=== PATIENT | male | born 1975 | race African-American/Black ===

== ENCOUNTER 2024-09-10 23:10 | Emergency (ER) | payer OTHER ==
[~2024-09-10] VITALS: Ht 182.9 cm; Wt 78.0 kg
[2024-09-10 23:54] VITALS: BP 96/47; TEMP 99.8
[2024-09-10 23:55] VITALS: O2SAT 96
[2024-09-11] MEDS: DEXAMETHASONE 10 MG/ML VIAL PO ONE (01:17)
[2024-09-11 01:40] VITALS: PULSE 87; RESP 20; O2SAT 98
[2024-09-11] MEDS: IPRATROPIUM/ALBUTEROL 0.5-3(2.5)MG/3ML NEB HHN ONE (01:40)
== END 2024-09-11 04:30 | disposition left against medical advice (07) ==
LOC: ER 23:10
DX: J45.901 Unspecified asthma with (acute) exacerbation (principal); Z79.52 Long term (current) use of systemic steroids; Z98.890 Other specified postprocedural states
CPT/HCPCS: 99283; 94640; J1100; Z7610 ×2